=== PATIENT | male | born 1960 | race Caucasian/White ===

== ENCOUNTER 2019-04-19 20:57 | Emergency (ER) | payer OTHER ==
[~2019-04-19] VITALS: Ht 175.3 cm; Wt 86.0 kg
[2019-04-19 21:09] VITALS: BP 116/76
[2019-04-19] MEDS ORDERED: AZIT2.5D4 OP (22:43)
== END 2019-04-19 22:59 | disposition home or self-care (01) ==
LOC: ER 20:59
DX: H10.9 Unspecified conjunctivitis (principal); E03.9 Hypothyroidism, unspecified; Z88.1 Allergy status to other antibiotic agents
CPT/HCPCS: 99283